=== PATIENT | female | born 1945 | race Caucasian/White ===

== ENCOUNTER 2021-04-10 05:47 | Day surgery (SDC) | payer OTHER ==
[~2021-04-10] VITALS: Ht 157.5 cm; Wt 86.2 kg
[~2021-04-10 05:47] MED LIST: HYDR1TAB97 PO; HYDR25TA5 PO; LOSA-39 PO; PREG150C PO
[2021-04-10] MEDS ORDERED: ceFAZolin 1GM/50ML 100 ML IV ONE (06:37)
[2021-04-10] MEDS ORDERED: LIDOCAINE W/ EPINEPHRINE 2% INJ 20ML VIAL ONE (07:28)
[2021-04-10] MEDS ORDERED: BUPIVACAINE 0.5% P/F INJ 10 ML VIAL ONE (07:28)
[2021-04-10] MEDS ORDERED: fentaNYL CITRATE 100 MCG/2 ML VL ONE (07:28)
[2021-04-10] MEDS ORDERED: ONDANSETRON HCL 4 MG/2 ML VIAL ONE (07:29)
[2021-04-10] MEDS ORDERED: MIDAZOLAM HCL 1MG/1ML-2 ML VIAL ONE (07:29)
[2021-04-10] MEDS ORDERED: LIDOCAINE 2% (LOCAL ANESTH.) PF 5ml SDV ONE (07:29)
[2021-04-10] MEDS ORDERED: PROPOFOL 10 MG/ML 20 ML IV ONE (07:29)
[2021-04-10] MEDS ORDERED: VANCOMYCIN HCL 1000 MG VL ONE (07:30)
[2021-04-10] MEDS ORDERED: BUPIVACAINE HCL 0.25% P/F 10 ML VIAL ONE (07:31)
[2021-04-10] MEDS ORDERED: MORPHINE SULF(PF) 0.5MG/ML 10ML VIAL ONE (07:35)
[2021-04-10] MEDS ORDERED: HYDROmorphone HCL 2 MG/ML VL IV PRN (09:00)
[2021-04-10 09:30] VITALS: BP 154/66
== END 2021-04-10 10:00 | disposition home or self-care (01) ==
LOC: SUR 05:47
PROVIDERS: ATTEND Anesthesiology Pain Medicine
DX: M48.062 Spinal stenosis, lumbar region with neurogenic claudication (principal); I10 Essential (primary) hypertension; M47.9 Spondylosis, unspecified; E66.9 Obesity, unspecified; Z68.34 Body mass index [BMI] 34.0-34.9, adult; Z20.822 Contact with and (suspected) exposure to COVID-19; Z98.890 Other specified postprocedural states; Z79.899 Other long term (current) drug therapy; Z88.6 Allergy status to analgesic agent; Z85.89 Personal history of malignant neoplasm of other organs and systems
CPT/HCPCS: 22869; 22870; 72100; C1821; J0690; J2001; J2250; J2270; J2405; J2704; J3010; J3370; J3490; U0003; 76000